=== PATIENT | female | born 2000 | race Caucasian/White ===

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

== ENCOUNTER 2020-06-24 08:42 | Emergency (ER) | payer MEDICAID ==
[~2020-06-24] VITALS: Ht 162.6 cm; Wt 50.2 kg
[~2020-06-24 08:42] MED LIST: DICY20TA3 PO; ONDA8TAB12 PO; PROM25TA10 PO
--- NOTE | 2020-06-24 09:25 | PHYS DOC ---
Past History Past Medical History: GERD, Other Additional Past Medical Histor: CYCLIC VOMITING Past Surgical History: No Surgical History Smoking: Non-smoker Alcohol Use: None Drug Use: Marijuana Social History Narrative: MONDAY General Adult EDM: Chief Complaint: NAUSEA/VOMITING/DIARRHEA HPI: HPI: 19-year-old female presents with abdominal cramping and vomiting. Patient a long history of cyclic vomiting. She is currently denying. She gets these episodes every time she has her menstrual cycle. She is currently on her menstrual cycle and is a little heavier than usual. She is on Depo-Provera. She complains of abdominal cramping is a twisting pressure sensation. She said 8 episodes of vomiting since last night. She normally takes Bentyl and Zofran as needed but is been unable to keep anything down. She denies fever chills. She has no other complaints at this time. She has been seeing a GI specialist in [place]. She has had multiple EGD and an abdominal MRI. Review of Systems: Review of Systems: Constitutional: Denies fever or chills Eyes: Denies change in visual acuity HENT: Denies nasal congestion or sore throat Respiratory: Denies cough or shortness of breath Cardiovascular: Denies chest pain or edema GI: Generalized abdominal pain, nausea, vomiting.denies bloody stools or diarrhea : Denies dysuria. Currently menstruating Musculoskeletal: Denies back pain or joint pain Integument: Denies rash Neurologic: Denies headache, focal weakness or sensory changes Endocrine: Denies polyuria or polydipsia Lymphatic: Denies swollen glands Psychiatric: Denies depression or anxiety Heart Score: Risk Factors: Risk Factors: DM, Current or recent (<one month) smoker, HTN, HLP, family history of CAD, obesity. Risk Scores: Score 0 - 3: 2.5% MACE over next 6 weeks - Discharge Home Score 4 - 6: 20.3% MACE over next 6 weeks - Admit for Clinical Observation Score 7 - 10: 72.7% MACE over next 6 weeks - Early Invasive Strategies Current Medications: Current Meds: Current Medications Medications (Trade) Dose Ordered Sig/Malachi Start Time Stop Time Status Last Admin Dose Admin Ondansetron HCl (Zofran) 4 mg 1X ONCE 06/24/20 09:15 06/24/20 09:16 UNV Sodium Chloride 1,000 ml @ 1,000 mls/hr 1X ONCE 06/24/20 09:15 06/24/20 10:14 UNV Allergies: Allergies: Allergies Coded Allergies Type Severity Reaction Last Updated Verified metoclopramide Allergy Intermediate 06/24/20 Yes Physical Exam: PE: Constitutional: Well developed, well nourished, mild acute distress, non-toxic appearance. [] HENT: Normocephalic, atraumatic, bilateral external ears normal, oropharynx moist, no oral exudates, nose normal. [] Eyes: PERRLA, EOMI, conjunctiva normal, no discharge. [] Neck: Normal range of motion, no tenderness, supple, no stridor. [] Cardiovascular:Heart rate regular rhythm, no murmur [] Lungs & Thorax: Bilateral breath sounds clear to auscultation [] Abdomen: Bowel sounds normal, soft, generalized tenderness, no masses, no pulsatile masses. [] Skin: Warm, dry, no erythema, no rash. [] Back: No tenderness, no CVA tenderness. [] Extremities: No tenderness, no cyanosis, no clubbing, ROM intact, no edema. [] Neurologic: Alert and oriented X 3, normal motor function, normal sensory function, no focal deficits noted. [] Psychologic: Affect normal, judgement normal, mood anxious. [] Current Patient Data: Vital Signs: Vital Signs Date Time Temp Pulse Resp B/P (MAP) Pulse Ox O2 Delivery O2 Flow Rate FiO2 06/24/20 08:51 98.4 116 20 121/83 (96) 96 Room Air EKG: EKG: [] Radiology/Procedures: Radiology/Procedures: [] Course & Med Decision Making: Course & Med Decision Making Pertinent Labs and Imaging studies reviewed. (See chart for details) For the patient's abdominal pain I gave her Bentyl, Benadryl, Zofran, a liter normal saline, morphine. Patient is feeling at this time. She is stable for discharge. [] Dragon Disclaimer: Mark Disclaimer: This electronic medical record was generated, in whole or in part, using a voice recognition dictation system. Departure Departure: Impression: Primary Impression: Nausea & vomiting Qualified Codes: R11.2 - Nausea with vomiting, unspecified Additional Impression: Abdominal pain, generalized Disposition: 01 HOME/RESIDENCE PRIOR TO ADM Condition: STABLE Referrals: PCP,NO (PCP) Patient Instructions: Nausea and Vomiting, [id number] Justification of Admission: Justification of Admission: Justification of Admission Dx: N/A MENG KIMBLE DO Jun 24, 2020 09:25
[2020-06-24] MEDS: IV NORMAL SALINE 1,000ML 1,000 ML IV ONE (09:47)
[2020-06-24] MEDS: ONDANSETRON PF 4 MG/2 ML VIAL. IVP ONE (09:48)
[2020-06-24] MEDS: diphenhydrAMINE 50 MG/ML VIAL IVP ONE (09:50)
[2020-06-24] MEDS: DICYCLOMINE HCL 20 MG TABLET PO ONE (09:52)
[2020-06-24 10:08] LABS: BASO % 0 % (0-3); EOS % 0 % (0-3); HEMATOCRIT 41.9 % (36.0-47.0); HEMOGLOBIN 14.1 g/dL (12.0-15.5); LYMPH % 12 % (24-48); MEAN CORPUSCULAR HEMOGLOBIN 29 pg (25-35); MEAN CORPUSCULAR HGB CONC 34 g/dL (31-37); MEAN CORPUSCULAR VOLUME 88 fL (79-100); MONO # 0.3 x10^3/uL (0.0-1.1); MONO % 4 % (0-9); NEUT % 84 % (31-73); PLATELET COUNT 214 x10^3/uL (140-400); RED BLOOD COUNT 4.77 x10^6/uL (3.50-5.40); RED CELL DISTRIBUTION WIDTH 13.6 % (11.5-14.5); WHITE BLOOD COUNT 8.4 x10^3/uL (4.0-11.0)
[2020-06-24 10:15] LABS: CALCIUM 9.7 mg/dL (8.5-10.1); CREATININE 0.9 mg/dL (0.6-1.0); GFR 79.8; POTASSIUM 4.1 mmol/L (3.5-5.1)
[2020-06-24] MEDS: MORPHINE SULFATE 2 MG/ML DISP.SYRIN. IV ONE (10:17)
[2020-06-24 10:19] LABS: BARBITURATES NEG (NEG); BENZODIAZEPINES NEG (NEG); CANNABINOIDS POS (NEG); COCAINE NEG (NEG); METHADONE NEG (NEG); OPIATES NEG (NEG); PHENCYCLIDINE NEG (NEG)
[2020-06-24 10:20] LABS: ALBUMIN 4.5 g/dL (3.4-5.0); ALBUMIN/GLOBULIN RATIO 1.2 (1.0-1.7); TOTAL BILIRUBIN 0.8 mg/dL (0.2-1.0); TOTAL PROTEIN 8.3 g/dL (6.4-8.2)
[2020-06-24 10:23] LABS: AMPHETAMINE/METHAMPHETAMINE NEG (NEG)
[2020-06-24 11:37] VITALS: BP 146/69
[2020-06-24 11:40] LABS: BILIRUBIN,URINE NEG (NEG); CLARITY,URINE CLEAR; COLOR,URINE YELLOW; GLUCOSE,URINE NEG (NEG)
[2020-06-24 11:41] LABS: BACTERIA,URINE FEW /HPF (0-FEW); NITRITE,URINE NEG (NEG); SQUAMOUS EPITHELIAL CELL,UR FEW /LPF; UROBILINOGEN,URINE 0.2 mg/dL (0.2 mg/dL)
== END 2020-06-24 11:32 | disposition home or self-care (01) ==
LOC: ER 08:42
DX: R10.84 Generalized abdominal pain (principal); R11.2 Nausea with vomiting, unspecified; K21.9 Gastro-esophageal reflux disease without esophagitis; Z88.8 Allergy status to other drugs, medicaments and biological substances
CPT/HCPCS: 36415; 80053; 80307; 81001; 81025; 85025; 96361; 96374; 96375; 99284; J1200; J2060; J2270; J2405; J7030

== ENCOUNTER 2020-06-27 05:42 | Emergency (ER) | payer MEDICAID ==
[~2020-06-27] VITALS: Ht 162.6 cm; Wt 49.0 kg
[2020-06-27] MEDS ORDERED: MORPHINE SULFATE 4 MG/ML DISP.SYRIN. ONE (06:17)
[2020-06-27] MEDS ORDERED: DICYCLOMINE HCL 20 MG TABLET ONE (06:17)
--- NOTE | 2020-06-27 06:21 | PHYS DOC ---
Past History Past Medical History: GERD, Cyclic Vomiting, Other Additional Past Medical Histor: CYCLIC VOMITING Past Surgical History: No Surgical History Smoking: Non-smoker Alcohol Use: None Drug Use: Marijuana Adult General Chief Complaint Chief Complaint: NAUSEA/VOMITING/DIARRHEA [facility] HPI Patient is a 19-year-old female who comes in for nausea, vomit, and abdominal cramping. This is a chronic problem. She was just seen here 3 days ago for similar symptoms, treated medically while in ER with IV fluids, pain control and antiemetics and discharged home. Nonetheless, patient presents today with identical symptomology. This is a chronic problem for her. She is visiting her family in the local area, she is originally from [place] where she is established with a interactive media director. She reports numerous imaging studies such as EGDs and abdominal MRIs being performed, she reports recent imaging being performed within the past 6 months that was grossly unremarkable. Regarding today's symptoms, patient reports nausea, cyclic episodes of nonb ilious nonbloody vomit, and abdominal cramping which is worse during menstruation. Denies fever, denies headache, denies shortness of breath, denies chest pain, denies any urinary symptoms, denies any changes in bowel habits. Review of Systems Review of Systems Fourteen body systems of review of systems have been reviewed. See HPI for pertinent positives and negative responses, other brannon all other systems are negative, non-pertinent or non-contributory Allergies Allergies Allergies Coded Allergies Type Severity Reaction Last Updated Verified metoclopramide Allergy Intermediate 06/24/20 Yes Physical Exam Physical Exam Constitutional: Well developed, well nourished, no acute distress but does appear to be in pain, non-toxic appearance. HENT: Normocephalic, atraumatic, bilateral external ears normal, oropharynx moist, no oral exudates, nose normal. Eyes: PERRLA, EOMI, conjunctiva normal, no discharge. Neck: Normal range of motion, no tenderness, supple, no stridor. Cardiovascular: Heart rate regular, sinus rhythm, no murmurs rubs or gallops Lungs & Thorax: Bilateral breath sounds clear to auscultation Abdomen: Bowel sounds normal, soft, non-focal generalized tenderness to palpation, voluntary guarding present, no rebound, no masses, no pulsatile masses. Nonsurgical abdomen, no peritoneal signs, negative heel strike, no obturator sign Skin: Warm, dry, no erythema, no rash. Back: No tenderness, no CVA tenderness. Extremities: No tenderness, no cyanosis, no clubbing, ROM intact, no edema. Neurologic: Alert and oriented X 3, grossly normal motor & sensory function, no focal deficits noted. Psychologic: Affect normal, judgement normal, depressed mood Current Patient Data Vital Signs Vital Signs Date Time Temp Pulse Resp B/P (MAP) Pulse Ox O2 Delivery O2 Flow Rate FiO2 06/27/20 05:50 98.5 76 20 136/93 (107) 99 Room Air Lab Results Laboratory Tests Test 06/27/20 06:20 Maternal Serum HCG Beta Subunit < 1 mIU/mL (0-6) Sodium Level 138 mmol/L (136-145) Potassium Level 4.3 mmol/L (3.5-5.1) Chloride Level 101 mmol/L (98-107) Carbon Dioxide Level 26 mmol/L (21-32) Anion Gap 11 (6-14) Blood Urea Nitrogen 21 mg/dL (7-20) Creatinine 0.7 mg/dL (0.6-1.0) Estimated GFR (Cockcroft-Gault) 106.7 Glucose Level 88 mg/dL (70-99) Calcium Level 8.8 mg/dL (8.5-10.1) Phosphorus Level 3.4 mg/dL (2.6-4.7) Lipase 101 U/L (73-393) EKG EKG [] Radiology/Procedures Radiology/Procedures [] Course & Med Decision Making Course & Med Decision Making ABCs unremarkable Comprehensive history and physical exam obtained, pertinent diagnostic studies ordered IV access obtained, 1 L IV normal saline, 4 mg IV morphine, 50 mg IV Benadryl, 10 mg IV Bentyl, and 1 mg IV Ativan administered Given that this is a chronic problem that has involved negative EGD, CT, and MRI in the past 6 months and fact that there were no concerning signs on my physical exam or laboratory analysis; joint decision to defer advanced diagnostic imaging. Patient reassessed numerous times while in ER department, patient reports improvement in symptomology with intervention above. Etiology is unclear but nonemergent/nonsurgical at present, I suspect cannabis hyperemesis syndrome given ongoing use, responded to typical HCS tx, and extensive abdominal pain work-up which has been grossly unremarkable Joint decision for patient to discharge home in stable condition with parents. Patient states she is traveling back to [place] in 2 days time and can be seen by her interactive media director within upcoming 4 to 7 days time Patient ran out of his home Phenergan suppositories, I have written her 4 days worth to last until she is able to travel home Strict return precautions discussed at length with good understanding by patient, all questions and concerns addressed prior to ER departure Mark Disclaimer Mark Disclaimer This electronic medical record was generated, in whole or in part, using a voice recognition dictation system. Departure Departure: Impression: Primary Impression: Nausea & vomiting Additional Impression: Abdominal pain Disposition: HOME/RESIDENCE PRIOR TO ADM Condition: IMPROVED Referrals: [facility] (PCP) Patient Instructions: Abdominal Pain (Nonspecific) Additional Instructions: You have been evaluated in the Emergency Department today for abdominal pain. Your evaluation was not suggestive of any emergent condition requiring medical intervention at this time. However, some abdominal problems make take more time to appear. Therefore, it is important for you to watch for any new symptoms or worsening of your current condition. As discussed prior to ER departure, please follow-up with your PCP and interactive media director in [place] within upcoming 3 to 10 days time Return to the Emergency Department if you experience worsening pain, persistent fevers greater than 100.4, recurrent vomiting, blood in vomit, blood in stool, dark tarry stool, chest pain, difficulty breathing, or any other concerning symptoms. Scripts Promethazine Hcl (PROMETHAZINE HCL) 12.5 Mg Supp.rect 1 SUPP RC Q4-6HRS for nausea for 4 Days, #24 SUPP 0 Refills Prov: LIAM COX DO 06/27/20 Justification of Admission: Justification of Admission: Justification of Admission Dx: N/A Problem Qualifiers LIAM COX DO Jun 27, 2020 06:21
[2020-06-27] MEDS ORDERED: ONDANSETRON PF 4 MG/2 ML VIAL. IVP ONE (06:30)
[2020-06-27] MEDS ORDERED: MORPHINE SULFATE 4 MG/ML DISP.SYRIN. IV ONE (06:30)
[2020-06-27] MEDS ORDERED: DICYCLOMINE HCL 20 MG TABLET PO ONE (06:30)
[2020-06-27] MEDS ORDERED: IV NORMAL SALINE 1,000ML 1,000 ML IV ONE (06:30)
[2020-06-27 06:41] LABS: CALCIUM 8.8 mg/dL (8.5-10.1); CREATININE 0.7 mg/dL (0.6-1.0); GFR 106.7; POTASSIUM 4.3 mmol/L (3.5-5.1)
[2020-06-27 06:45] LABS: PHOSPHORUS 3.4 mg/dL (2.6-4.7)
[2020-06-27 07:10] VITALS: BP 110/75
[2020-06-27] MEDS ORDERED: diphenhydrAMINE 50 MG/ML VIAL IVP ONE (07:30)
[2020-06-27] MEDS ORDERED: PROM12.554 RC (07:39)
[2020-06-27] MEDS ORDERED: DICYCLOMINE 20 MG/2 ML VIAL. IM ONE (07:45)
== END 2020-06-27 07:30 | disposition home or self-care (01) ==
LOC: ER 05:42
DX: R10.84 Generalized abdominal pain (principal); R11.2 Nausea with vomiting, unspecified; K21.9 Gastro-esophageal reflux disease without esophagitis; Z88.8 Allergy status to other drugs, medicaments and biological substances
CPT/HCPCS: 36415; 80048; 83690; 84100; 84702; 96361; 96372; 96374; 96375; 99284; J0500; J1200; J2060; J2270; J2405; J7030